=== PATIENT | male | born 1980 | race Caucasian/White ===

== ENCOUNTER 2020-04-27 20:23 | Emergency (ER) | payer OTHER ==
[~2020-04-27] VITALS: Ht 190.5 cm; Wt 131.5 kg
[2020-04-27 21:18] VITALS: BP 138/83
[2020-04-27] MEDS ORDERED: KETOROLAC TROMETH 60MG/2ML VIAL IM ONE (23:45)
[2020-04-28] MEDS ORDERED: ACETAMINOPHEN 325 MG TAB PO ONE
[2020-04-29 09:56] LABS: Hepatitis B Surface Antibody Positive
[2020-04-29 12:39] LABS: Hepatitis B Surface Antigen Negative (Negative)
== END 2020-04-28 01:10 | disposition home or self-care (01) ==
LOC: ER 20:23
DX: S61.012A Laceration without foreign body of left thumb without damage to nail, initial encounter (principal); S86.912A Strain of unspecified muscle(s) and tendon(s) at lower leg level, left leg, initial encounter; M17.12 Unilateral primary osteoarthritis, left knee; Z88.6 Allergy status to analgesic agent; X50.1XXA Overexertion from prolonged static or awkward postures, initial encounter; Y93.89 Activity, other specified; Y92.89 Other specified places as the place of occurrence of the external cause; Y99.8 Other external cause status
CPT/HCPCS: 36415; 73562; 86703; 86706; 86803; 87340